=== PATIENT | female | born 1950 | race African-American/Black ===

== ENCOUNTER 2017-04-17 13:54 | Emergency (ER) | payer MEDICARE, OTHER ==
[~2017-04-17] VITALS: Ht 154.9 cm; Wt 70.3 kg
[2017-04-17] MEDS ORDERED: COZAAR25 MG ORAL (14:32)
[2017-04-17] MEDS ORDERED: SPIRIVA18 MCG INH (14:32)
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
[2017-04-17] MEDS ORDERED: NAPROXEN500 M2 ORAL (15:56)
[2017-04-17] MEDS ORDERED: ROBAXIN-750750 MG PO (15:56)
[2017-04-17 16:10] VITALS: BP 121/85
--- NOTE | 2017-04-17 16:58 | Diagnostic Imaging Report ---
Indication: left shoulder pain Findings: 3 views of the left shoulder were obtained. Alignment of the left shoulder is normal. No acute fracture is identified. Soft tissues are unremarkable. Bones are osteopenic. Impression: No acute injury
== END 2017-04-17 16:10 | disposition home or self-care (01) ==
LOC: EMR 14:50
DX: M25.512 Pain in left shoulder (principal); I10 Essential (primary) hypertension; R51 Headache; M54.5 Low back pain; V49.50XA Passenger injured in collision with unspecified motor vehicles in traffic accident, initial encounter; Y92.9 Unspecified place or not applicable
CPT/HCPCS: 99283